=== PATIENT | male | born 1965 | race Caucasian/White ===

== ENCOUNTER 2020-05-17 08:52 | Emergency (ER) | payer BC ==
[2020-05-17] MEDS ORDERED: Nitroglycerin 0.4 MG Tab.SL SL ONE (09:14)
--- NOTE | 2020-05-17 09:14 | EDM.PDOC ---
ED HPI GENERAL MEDICAL PROBLEM - General Chief Complaint: General Stated Complaint: HIGH BLOOD PRESSURE AND LEFT SHOULDER PAIN Time Seen by Provider: 05/17/20 09:03 - History of Present Illness INITIAL COMMENTS - FREE TEXT/NARRATIVE: 55-year-old male presents the emergency room with elevated blood pressure and left shoulder pain. Patient was sent here from the walk-in clinic with the above complaint. The patient had left shoulder surgery after he broke it in November of this year. Patient thinks perhaps he slept on it wrong. He has a little bit of tingling in his fingers. The patient at 6:00 noted his systolic blood pressures were in the 160 range and this is abnormal for him. Patient is a significant cardiac risk. Patient had open heart surgery for a single vessel bypass. He mentioned something about fixing his SVT at that time as well. 2 weeks after the open heart surgery the patient had another episode of SVT. Shortly after this he was evaluated by electrophysiology and ultimately had an ablation and has not had any problems with it since. The patient is currently taking losartan twice daily and amlodipine twice daily. He is on an aspirin he believes 325 daily and has taken it already today. The patient states he is a social smoker. But denies an every day thing. We did discuss the importance of quitting. The patient has a grandfather on his mother's side that may have had some coronary issues but ultimately of cancer. An uncle on his father's side has had significant coronary events. - Related Data Allergies Allergy/AdvReac Type Severity Reaction Status Date / Time Penicillins Allergy Severe Hypertensio Verified 05/17/20 09:14 n Home Meds: Home Meds Aspirin 325 mg PO DAILY 05/17/20 [History] Esomeprazole Magnesium [Nexium] 40 mg PO DAILY 05/17/20 [History] Fish Oil/[place]-3 Fatty Acids [Fish Oil 1,000 MG] 7 cap PO DAILY 05/17/20 [History] Losartan [Cozaar] 50 mg PO BID 05/17/20 [History] amLODIPine [Norvasc] 5 mg PO BID 05/17/20 [History] atorvaSTATin [Lipitor] 40 mg PO DAILY 05/17/20 [History] ED ROS GENERAL - Review of Systems Review Of Systems: See Below Constitutional: Reports: No Symptoms HEENT: Reports: No Symptoms Respiratory: Reports: No Symptoms Cardiovascular: Reports: Other (Evaded blood pressure and left shoulder pain) Endocrine: Reports: No Symptoms GI/Abdominal: Reports: No Symptoms Musculoskeletal: Reports: Other (Shoulder pain on the left) Skin: Reports: No Symptoms ED EXAM, GENERAL - Physical Exam Exam: See Below Exam Limited By: No Limitations General Appearance: Alert, No Apparent Distress Head: Atraumatic, Normocephalic Neck: Normal Inspection, Supple, Non-Tender, Full Range of Motion Respiratory/Chest: No Respiratory Distress, Lungs Clear, Normal Breath Sounds Cardiovascular: Regular Rate, Rhythm, No Edema, No Murmur GI/Abdominal: Normal Bowel Sounds, Soft, Non-Tender, No Distention Back Exam: Normal Inspection. No: CVA Tenderness (L), CVA Tenderness (R) Extremities: Normal Inspection, No Pedal Edema Neurological: Alert, Oriented, Normal Cognition Course - Vital Signs Last Recorded V/S: Last Vital Signs Temp 36.8 C 05/17/20 09:10 Pulse 88 05/17/20 09:10 Resp 20 05/17/20 09:10 BP 146/93 H 05/17/20 09:30 Pulse Ox - Orders/Labs/Meds Orders: Active Orders 24 hr Category Date Time Status EKG Documentation Completion [RC] STAT Care 05/17/20 09:15 Active Labs: Laboratory Tests 05/17/20 05/17/20 05/17/20 Range/Units 09:32 09:32 09:32 WBC 7.69 (4.23-9.07) K/mm3 RBC 4.85 (4.63-6.08) M/mm3 Hgb 15.3 (13.7-17.5) gm/dl Hct 45.7 (40.1-51.0) % MCV 94.2 H (79.0-92.2) fl MCH 31.5 (25.7-32.2) pg MCHC 33.5 (32.2-35.5) g/dl RDW Std Deviation 44.2 H (35.1-43.9) fL Plt Count 244 (163-337) K/mm3 MPV 10.4 (9.4-12.3) fl Neut % (Auto) 60.9 (34.0-67.9) % Lymph % (Auto) 29.3 (21.8-53.1) % [place] % (Auto) 7.7 (5.3-12.2) % Eos % (Auto) 0.8 (0.8-7.0) Baso % (Auto) 0.9 (0.1-1.2) % Neut # (Auto) 4.69 (1.78-5.38) K/mm3 Lymph # (Auto) 2.25 (1.32-3.57) K/mm3 [place] # (Auto) 0.59 (0.30-0.82) K/mm3 Eos # (Auto) 0.06 (0.04-0.54) K/mm3 Baso # (Auto) 0.07 (0.01-0.08) K/mm3 PT 10.3 (9.7-12.0) SECONDS INR 0.96 APTT 26 (22-31) SECONDS Sodium 138 (136-145) mEq/L Potassium 4.0 (3.5-5.1) mEq/L Chloride 102 (98-107) mEq/L Carbon Dioxide 25 (21-32) mEq/L Anion Gap 15.0 (5-15) BUN 13 (7-18) mg/dL Creatinine 0.9 (0.7-1.3) mg/dL Est Cr Clr Drug Dosing 102.99 mL/min Estimated GFR (MDRD) > 60 (>60) mL/min BUN/Creatinine Ratio 14.4 (14-18) Glucose 113 H (74-106) mg/dL Calcium 9.1 (8.5-10.1) mg/dL Total Bilirubin 0.6 (0.2-1.0) mg/dL AST 67 H (15-37) U/L ALT 71 H (16-63) U/L Alkaline Phosphatase 109 (46-116) U/L Troponin I < 0.017 (0.00-0.056) ng/mL Total Protein 7.6 (6.4-8.2) g/dl Albumin 4.1 (3.4-5.0) g/dl Globulin 3.5 gm/dL Albumin/Globulin Ratio 1.2 (1-2) Meds: Medications Discontinued Medications Generic Name Dose Route Start Last Admin Trade Name Freq PRN Reason Stop Dose Admin Nitroglycerin 0.4 mg 05/17/20 09:14 05/17/20 09:30 Nitrostat SL 05/17/20 09:15 0.4 mg ONETIME ONE Administration - Re-Assessments/Exams Free Text/Narrative Re-Assessment/Exam: 05/17/20 10:32 Patient is unremarkable including negative troponin. And the concerns about the left midlung nodule. The patient states he has had a CT done couple years ago and this is been present for a while. And the other concern of possibly a ventricular aneurysm or consolidating parenchymal mole density. The patient is being treated with Zithromax for cough at this point and he is on some prescription congestion medication at this point that 1 of the local provider started him on. At this point the patient would like to hold off and not get a CT which is certainly reasonable. He will be back home in [place] in a week and can follow-up with his regular provider then and he agrees to do so. Departure - Departure Time of Disposition: 10:35 Disposition: Home, Self-Care 01 Clinical Impression: Elevated blood pressure reading, History of hypertension, Coronary artery disease with history of coronary revascularization Referrals: PCP,Not In Area [Primary Care Provider] - Forms: ED Department Discharge Additional Instructions: Return to the emergency room with any questions problems or worsening symptoms. Follow-up with your regular provider back home next week. Discuss the lung nodule, be sure your cough and congestion is improving. And discuss adjusting your blood pressure medication if your blood pressure stays on the high side. I would recommend having a lipid panel checked. Continue your daily aspirin and your other routine medications at this point Sepsis Event Note (ED) - Focused Exam Vital Signs: Vital Signs Temp Pulse Resp BP BP 05/17/20 09:30 146/93 H 05/17/20 09:10 36.8 C 88 20 164/93 H - My Orders Last 24 Hours: My Active Orders 05/17/20 09:15 EKG Documentation Completion [RC] STAT - Assessment/Plan Last 24 Hours: My Active Orders 05/17/20 09:15 EKG Documentation Completion [RC] STAT
--- NOTE | 2020-05-17 09:56 | CR ---
Chest: Portable view of the chest was obtained. Comparison: No prior chest imaging is available. Heart is mildly enlarged. Parenchymal density is noted off the left side of the heart and difficult to exclude ventricular aneurysm or underlying consolidating parenchymal change. Nodule is noted within the left midlung. Right lung is clear. Previous sternotomy is noted. Prior left clavicle surgery is noted. Impression: 1. Findings as noted above. Consider noncontrast chest CT to further evaluate. Diagnostic code #3 This report was dictated in [facility]T
== END 2020-05-17 10:45 | disposition home or self-care (01) ==
LOC: JD.ED 08:52
DX: I10 Essential (primary) hypertension (principal); I25.10 Atherosclerotic heart disease of native coronary artery without angina pectoris; Z88.0 Allergy status to penicillin; Z79.82 Long term (current) use of aspirin; Z79.899 Other long term (current) drug therapy
CPT/HCPCS: 36415; 71045; 80053; 84484; 85025; 85610; 85730; 93005; 99284; A9270; 93010